=== PATIENT | male | born 1990 | race Caucasian/White ===

== ENCOUNTER 2017-02-03 11:18 | Emergency (ER) | payer MEDICAID ==
[~2017-02-03] VITALS: Ht 167.6 cm; Wt 81.6 kg
--- NOTE | 2017-02-03 11:43 | Emergency Room Report ---
History of Present Illness Time Seen by MD Bar Presenting Problem in Triage Pt arrived:Walked Presenting Problem:PT PRESENTS WITH ABCESS TO LT ARM. PT STATES THAT IT HAS BEEN PRESENT FOR 3 OR 4 DAYS. PT REPORTS HX OF ABCESSES AND MRSA Onset of symptoms date/time:/ or onset unknown for:MEDICAL HX UNKNOWN Treatment Prior to Arrival: [employer] Provided by: Sepsis Risk Assessment: Temp: 97.6 B/P: 121/78 MAP: 92 Pulse: 80 Resp: 16 Recent fever? N Clinical Suspician of Infection? N Mental Status: 1 - Regular (Normal Baseline) Sepsis Risk:Low Sepsis Risk Have you (or family members/close friends) recently traveled outside the [place]? N If Yes, where/when: Have you had exposure to infectious disease within the past month? N TB? Other? Specify: Comment The patient complains of an abscess on his LEFT arm for 3-4 days. He has felt fevers. He has a history of prior skin abscesses requiring incision and drainage. The last was a couple of years ago. He has been told that he has MRSA. ALLERGIES Coded Allergies: Penicillins (Mild, 02/03/17) History Medical History General CAD? No Angina: No [place]: No Hypertension? No Hyperlipidemia? No CHF? No DVT? No PE? No COPD? No Asthma? No Anemia? No GERD? No Gastric ulcers? No GI Bleed? No Hernia? No Thyroid Problems? No Hypothyroidism? No CVA? No Seizures? No Diabetes? No Renal Insuffiency? No End Stage Renal Disease? No UTI? No Stones? No BPH? No GB Disease: No Nephritic Syndrome? No Asplenia? No Hepatitis? No Sickle Cell Disease? No Arthritis? No Migraines? No Cataracts? No Glaucoma? No MRSA? No HIV? No TB? No Anxiety? No Depression? No Cancer? No More? No Immunization Hx DT/Tetanus 1-4 YRS Surgical Hx Previous Surgery?Y CHEST TUBE AT Hernia Repair Social History Smoking Hx Smoker: Current Every Day Smoker Tobacco: Yes Type Cigarettes Packs/day 1 1/2 - 2 Packs Alcohol Alcohol: Yes Review of Systems All Other Systems Reviewed and Negative Constitutional chills, diaphoresis, fever Skin see HPI Physical Exam Vital Signs Vital Signs Date Time Temp Pulse Resp B/P Pulse O2 O2 Flow FiO2 Ox Delivery Rate 02/03 1122 97.6 80 16 121/78 97 General Appearance normal appearance Respiratory Status No: respiratory distress. Cardiovascular regular rate/rhythm, normal peripheral pulses Extremities 5 cm diameter indurated erythematous tender area LEFT upper arm proximal to his antecubital crease, to the lateral side of midline. Neurologic alert, no motor/sensory deficits Medical Decision Making LABS/Meds/Orders Pt receiving controlled substance in ED? Yes Alfonzo was queried for this patient? Yes Comment [id number] 2 rxs. last rx 12 percocet on 12/29/16. Results/Orders Current Medication Orders Sig/Jeffrey Start time Last Medication Dose Route Stop Time Status Admin Trimethoprim/ 1 TABLET ONCE ONE 02/03 1215 DCr Sulfamethoxazole PO 02/03 1216 Lidocaine/Epinephrine 10 ML ONCE ONE 02/03 1145 DC SC 02/03 1146 Lidocaine/Epinephrine 0 .STK-MED ONE 02/03 1144 DC .ROUTE Orders Procedure Date/time Status CULTURE, WOUND 02/03 1142 Active Procedures Incision and Drainage Progress Incision/Drainage Performed by: RACQUEL PRATT Consent: Verbal consent obtained. Risks and benefits: risks, benefits and alternatives were discussed Consent given by: patient Patient identity confirmed: verbally with patient Type: abscess Location: LEFT arm Anesthesia: local infiltration Local anesthetic: lidocaine 1% with epinephrine Patient sedated: no Scalpel size: 11 Incision type: single straight Complexity: simple Drainage: purulent Drainage amount: Large amount Wound treatment: probed for loculationsl. wound left open Packin/4 inch Culture: Sent Patient tolerance: Patient tolerated the procedure well with no immediate complications Departure Departure Disposition DC Home or Self Care(routine) Clinical Impression Primary Impression: Cutaneous abscess of extremity Qualifiers: Site of cutaneous abscess of extremity: upper extremity Laterality: left Qualified Code: L02.414 - Cutaneous abscess of left upper limb Condition STABLE Additional Instructions Additional instructions for ABSCESS: Day one and two: Remove the bandage and shower the area, leaving the packing in place. Gently blot dry. Apply a bandage. Day three: Follow-up with primary care physician, clinic, or Urgent Treatment Center for packing removal and culture results. Return to the emergency department if increasing pain, swelling, redness, redstreaks or fever greater than 101 degrees. Prescriptions Current Visit Scripts SULFAMETHOXAZOLE W/TRIMETHOPRI (Bactrim Ds Tab) 1 TAB PO BID #20 TAB HYDROCODONE/ACETAMINOPHEN ([place] 5-325 Tablet) 1 TAB PO Q6HP PRN pain #8 TAB ED Critical Care Critical Care No
[2017-02-03] MEDS ORDERED: NORCO 325 MG-51 TAB PO (12:17)
[2017-02-03] MEDS ORDERED: BACTRIM DS 8001 TA1 PO (12:17)
[2017-02-03 12:52] VITALS: BP 124/85
== END 2017-02-03 12:53 | disposition home or self-care (01) ==
LOC: ER 11:18
PROC: 0H9CXZZ Drainage of Left Upper Arm Skin, External Approach (ICD-10-PCS; principal; 2017-02-03)
DX: L02.414 Cutaneous abscess of left upper limb (principal); Z88.0 Allergy status to penicillin; F17.210 Nicotine dependence, cigarettes, uncomplicated

== ENCOUNTER 2017-02-18 09:51 | Emergency (ER) | payer MEDICAID ==
[~2017-02-18] VITALS: Ht 167.6 cm; Wt 81.6 kg
[~2017-02-18 09:51] MED LIST: BACTRIM DS 8001 TA1 PO; NORCO 325 MG-51 TAB PO
--- NOTE | 2017-02-18 10:25 | Emergency Room Report ---
History of Present Illness Time Seen by [id number] Presenting Problem in Triage Pt arrived:Walked Presenting Problem:PT C/O BLISTER-LIKE RASH ALL OVER BODY. PT STATES THAT IT APPEARED YESTERDAY AFTER HE HAS BEEN WORKING IN [employer] FOR THE LAST COUPLE DAYS Onset of symptoms date/time:/ or onset unknown for:MEDICAL HX UNKNOWN Treatment Prior to Arrival: [employer] Provided by: Sepsis Risk Assessment: Temp: 97.9 B/P: 132/66 MAP: 88 Pulse: 77 Resp: 20 Recent fever? N Clinical Suspician of Infection? N Mental Status: 1 - Regular (Normal Baseline) Sepsis Risk:Low Sepsis Risk Have you (or family members/close friends) recently traveled outside the [place]? N If Yes, where/when: Have you had exposure to infectious disease within the past month? N TB? Other? Specify: 26 years old white male who has been collecting [employer] for money for the last 3 days, he developed a rash involving the upper and lower extremities. Yesterday he developed blisters. He presented to the ED today complaining of pain in both upper extremities. He denies having fever or chills chest pain that was breathing nausea or vomiting. He looks in no respiratory distress. He is homeless. Source patient, RN notes reviewed Exam Limitations no limitations ALLERGIES Coded Allergies: Penicillins (Mild, 02/03/17) Home Medications Active Scripts SULFAMETHOXAZOLE W/TRIMETHOPRI (Bactrim Ds Tab) 1 TAB PO BID #20 TAB Prov: 02/03/17 HYDROCODONE/ACETAMINOPHEN ([place] 5-325 Tablet) 1 TAB PO Q6HP PRN pain #8 TAB Prov: 02/03/17 History Medical History General CAD? No Angina: No [place]: No Hypertension? No Hyperlipidemia? No CHF? No DVT? No PE? No COPD? No Asthma? No Anemia? No GERD? No Gastric ulcers? No GI Bleed? No Hernia? No Thyroid Problems? No Hypothyroidism? No CVA? No Seizures? No Diabetes? No Renal Insuffiency? No End Stage Renal Disease? No UTI? No Stones? No BPH? No GB Disease: No Nephritic Syndrome? No Asplenia? No Hepatitis? No Sickle Cell Disease? No Arthritis? No Migraines? No Cataracts? No Glaucoma? No MRSA? No HIV? No TB? No Anxiety? No Depression? No Cancer? No More? No Immunization Hx DT/Tetanus 1-4 YRS Surgical Hx Previous Surgery?Y CHEST TUBE AT Hernia Repair Social History Smoking Hx Smoker: Current Every Day Smoker Tobacco: Yes Type Cigarettes Packs/day 1 1/2 - 2 Packs Alcohol Alcohol: Yes Review of Systems All Other Systems Reviewed and Negative Constitutional no symptoms reported Eyes no symptoms reported ENT no symptoms reported. Respiratory no symptoms reported Cardiovascular no symptoms reported Gastrointestinal no symptoms reported Genitourinary no symptoms reported. Musculoskeletal no symptoms reported Skin see HPI, rash (blisters) Psychiatric/Neurological no symptoms reported Physical Exam Vital Signs Vital Signs Date Time Temp Pulse Resp B/P Pulse O2 O2 Flow FiO2 Ox Delivery Rate 02/18 1215 97.9 77 20 132/66 99 02/18 0956 97.9 77 20 132/66 99 - WBC >12,000 or <4,000 or 10% bands? 2 or more SIRS Criteria Met? B/P:132/66 MAP:88 Creatinine >2.0? UA output<0.5ml/kg/hr for 2 hrs? Platelet count >100,000? Lactate >2.0mmol/1? INR >1.2 or PTT > than 60 sec? Evidence of Organ Dysfunction? Provider documented clinical suspician of infection? N Sepsis Criteria Count: 1 Sepsis Risk: Low Sepsis Risk General Appearance normal appearance, WD/WN Eye Exam - bilateral eye normal exam, bilateral eye PERRL, bilateral eye EOMI Ear, Nose, Throat hearing grossly normal, normal ENT inspection Neck normal inspection, non-tender, supple, full range of motion Respiratory Status Yes: trachea midline, chest symmetrical, non tender chest. No: respiratory distress. Lung Sounds bilateral: normal breath sounds, lungs clear. 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 The patient has a rash looks like a firsst degree burn involving his abdomen, lower chestand the RIGHT flank region posteriorly. Lymphatic no adenopathy Medical Decision Making LABS/Meds/Orders Pt receiving controlled substance in ED? No Results/Orders Laboratory Tests 02/18/17 1030: Sodium 137, Potassium 4.3, Chloride 106, Carbon Dioxide 25, BUN 15, Creatinine 0.8, Estimated Creat Clear 159, Estimated GFR (MDRD) 115, Glucose 120 H, Calcium 8.6, Total Bilirubin 0.2, AST 37, ALT 59, Alkaline Phosphatase 63, Total Protein 6.6, Albumin 3.1 L, Globulin 3.5 H, Albumin/Globulin Ratio 0.9 L, WBC 6.8, RBC 5.22, Hgb 15.2, Hct 45.5, MCV 87.3, RDW 12.9, Plt Count 284, MPV 7.9, Gran % 61.6, Gran # 4.2, Lymphocytes % 21.1, Monocytes % 7.4, Eosinophils % 9.3, Basophils % 0.5, Lymphocytes # 1.4, Monocytes # 0.5, Eosinophils # 0.6 H, Basophils # 0.0, PUBS MCHC 33.0, MCH 28.8 02/18/17 1017: Lactic Acid Cancelled Orders Procedure Date/time Status IV SALINE LOCK 02/18 1018 Active CBC WITH AUTO DIFF 02/18 1017 Complete CHEM 12 PROFILE 02/18 1017 Complete Departure Departure Time of Disposition 1145 Disposition DC/XFER from ER to [facility] Hosp Clinical Impression Primary Impression: Allergic reaction Secondary Impressions: Skin bullae on examination Condition STABLE Referrals Antonio Corcoran Additional Instructions The patient remianed afebeile, I obtained normal cbc and electrolytes. I discussed with patient in details thay he has normal vitals and normal labs, he will have an oral medications and follow up with Dr Marie. He stated that he has access to free medications through his medical insurance and he will be staying with a friend. 1- Keep the skin blistrers clean and dry, 2- start on all medications including antibiotics 3- please by a thermometer and observe for fever and return if you developa fever. 4- follow up with Brandon at Dr Marie"s office in am for a recheck. Discharge Counseling Counseled pt/family regarding diagnosis, test results, medications/RX, home care, follow up needs Prescriptions Current Visit Scripts SULFAMETHOXAZOLE W/TRIMETHOPRI (Bactrim Ds Tab) 1 TABLET PO BID #20 TAB Methylprednisolone (Medrol Dose Rex) 4 MG PO UD #1 REX TAKE DIRECTED ON PACKAGING Ranitidine Hcl (Zantac) 150 MG PO BID #20 TAB MUPIROCIN 2% (Bactroban Oint) 0 GM TP DAILY #1 TUBE Ref 1 Diphenhydramine Hcl (Benadryl 25MG CAP) 1-2 CAP PO Q8HP #21 CAP ED Critical Care Critical Care No If Critical Care minutes are documented, the time involved in the performance of seperately reportable procedures was not counted toward critical care time documented. I directly delivered medical care to this critically ill and/or injured patient. Timely evaluation and treatment was necessary to address the significant organ system(s) dysfunction present in this patient. 3- please by a thermometer and observe for fever and return if you developa fever. 4- follow up with Brandon at Dr Marie"s office in am for a recheck. Discharge Counseling Counseled pt/family regarding diagnosis, test results, medications/RX, home care, follow up needs Prescriptions Current Visit Scripts SULFAMETHOXAZOLE W/TRIMETHOPRI (Bactrim Ds Tab) 1 TABLET PO BID #20 TAB Methylprednisolone (Medrol Dose Rex) 4 MG PO UD #1 REX TAKE DIRECTED ON PACKAGING Ranitidine Hcl (Zantac) 150 MG PO BID #20 TAB MUPIROCIN 2% (Bactroban Oint) 0 GM TP DAILY #1 TUBE Ref 1 Diphenhydramine Hcl (Benadryl 25MG CAP) 1-2 CAP PO Q8HP #21 CAP ED Critical Care Critical Care No If Critical Care minutes are documented, the time involved in the performance of seperately reportable procedures was not counted toward critical care time documented. I directly delivered medical care to this critically ill and/or injured patient. Timely evaluation and treatment was necessary to address the significant organ system(s) dysfunction present in this patient.
[2017-02-18 10:47] LABS: LYMPH # 1.4 K/mm3 (0.7-4.5); LYMPH % 21.1 % (10-50)
[2017-02-18 10:58] LABS: HEMOGLOBIN 15.2 g/dL (14.1-18.0)
[2017-02-18] MEDS ORDERED: ZANTAC 150150 MG PO (11:55)
[2017-02-18] MEDS ORDERED: BACTROBAN2% TP (11:55)
[2017-02-18] MEDS ORDERED: BENADRYL 25MG C25 MG PO (11:55)
[2017-02-18] MEDS ORDERED: MEDROL 4MG. DOSE4 MG PO (11:55)
[2017-02-18] MEDS ORDERED: BACTRIM DS 8001 TA1 PO (11:55)
[2017-02-18 12:15] VITALS: BP 132/66
--- OUTSIDE RECORDS SUMMARY | 2017-02-20 15:57 | External Medical Summary Rpt | CCD ---
Author Author , SERGE Organization SERGE Address Unknown Phone [email or web address] Purpose Continuity of Care Document - 08-13-2016 through 2016 Problems Code Diagnosis DOS Provider Status L02.419 CUTANEOUS ABSCESS OF LIMB, UNSPECIFIED S00.83XA CONTUSION OF OTHER PART OF HEAD, INITIAL ENCOUNTER S02.2XXA FRACTURE OF NASAL BONES, INIT ENCNTR FOR CLOSED FRACTURE S06.0X9A CONCUSSION W LOSS OF CONSCIOUSNE SS OF UNSP DURATION, INIT S61.219A LACERATION W/O FB OF UNSP FINGER W/O DAMAGE TO NAIL, INIT Results Labs Lab Lab Date Result Refere Interp Status Commen Order Detail nces retati t Range on TSH SerPl DL<=0.005 mIU/L-aCnc (08-13-2016 07:37) TSH 0.86 0.4-4.2 complet SerPl 017 uIU/mL ed DL<=0.0 07:37 05 mIU/L-a Cnc T4 Free SerPl-mCnc (08-13-2016 07:37) T4 Free 1.2 0.8-1.7 complet 017 ng/dL ed SerPl-m 07:37 Cnc
--- OUTSIDE RECORDS SUMMARY | 2017-02-20 15:57 | External Medical Summary Rpt | CCD ---
Author Author , SERGE Organization SERGE Address Unknown Phone [email or web address] Immunization Name Date Rout CVX Reac Dose Comm Prov Is Faci e tion ent ider Refu lity Give sed n MCV4 07-1 147 999 Hist H220 No H220 UF 2-20 oric 07 al Info rmat ion - Sour ce Unsp ecif ied Td 01-0 9 999 Hist H106 No H106 (med 3-20 oric lt), 02 al Info adso rmat rbed ion - Sour ce Unsp ecif ied Td 07-0 9 999 Hist H106 No H106 (med 1-19 oric lt), 99 al Info adso rmat rbed ion - Sour ce Unsp ecif ied Hep 07-1 8 999 Hist H106 No H106 B, 0-19 oric ped/ 98 al adol Info rmat ion - Sour ce Unsp ecif ied Hep 07-1 8 999 Hist H106 No H106 B, 8-19 oric ped/ 97 al adol Info rmat ion - Sour ce Unsp ecif ied MMR 07-1 3 999 Hist H106 No H106 8- oric 97 al Info rmat ion - Sour ce Unsp ecif ied Hep 06-1 8 999 Hist H106 No H106 B, 8- oric ped/ 97 al adol Info rmat ion - Sour ce Unsp ecif ied
--- OUTSIDE RECORDS SUMMARY | 2017-02-20 15:57 | External Medical Summary Rpt | CCD ---
Demographics Preferred Language Japanese Marital Status Unknown Religion Affiliation Unknown Race Unknown Ethnic Group Unknown Author Author SERGE Address Unknown Phone [email or web address] Purpose Continuity of Care Document - through 2016
--- OUTSIDE RECORDS SUMMARY | 2017-02-20 15:57 | External Medical Summary Rpt | CCD ---
Demographics Preferred Language Tamazight Marital Status Unknown Church Affiliation Unknown Race Unknown Ethnic Group Unknown Author Author SERGE Address Unknown Phone .[employer] Purpose Continuity of Care Document - through 2016
--- OUTSIDE RECORDS SUMMARY | 2017-02-20 15:57 | External Medical Summary Rpt | CCD ---
Author Author , SERGE Organization SERGE Address Unknown Phone [email or web address] Purpose Continuity of Care Document - 08-13-2016 [...]
--- OUTSIDE RECORDS SUMMARY | 2017-02-20 15:57 | External Medical Summary Rpt | CCD ---
Author Author , SERGE Organization SERGE Address Unknown Phone [email or web address] Immunization Name Date Rout CVX Reac Dose [...]
--- OUTSIDE RECORDS SUMMARY | 2017-02-20 15:58 | External Medical Summary Rpt ---
Author Author SERGE Lipscomb, SERGE Lipscomb Organization [employer] Address Unknown Phone Unavailable
== END 2017-02-18 12:19 | disposition short-term general hospital (02) ==
LOC: ER 09:51
PROVIDERS: Emergency Medicine
DX: T78.49XA Other allergy, initial encounter (principal); F17.210 Nicotine dependence, cigarettes, uncomplicated; Z88.0 Allergy status to penicillin

== ENCOUNTER 2017-04-06 13:54 | Emergency (ER) | payer MEDICAID ==
[~2017-04-06] VITALS: Ht 167.6 cm; Wt 79.4 kg
[~2017-04-06 13:54] MED LIST changes: +BACTROBAN2% TP; +BENADRYL 25MG C25 MG PO; +MEDROL 4MG. DOSE4 MG PO; +ZANTAC 150150 MG PO
--- OUTSIDE RECORDS SUMMARY | 2017-04-06 14:12 | External Medical Summary Rpt ---
Author Author [employer]GE Production, [employer] Organization [employer] Address Unknown Phone Unavailable Results CBC W Auto Differential panel in Blood Observa Value Referen Units Interpr Notes Date tion ce etation Range Basophils 0 - 0.2 K/MM3 Normal No Feb 18 inform2016 [#/volume on in 10:30 AM ] in source Blood by data Automated count Basophils 0.1 - 2.0 % Normal No Feb 18 inform2016 leukocyte on in 10:30 AM s in source Blood by data Automated count Eosinophi 0.0 - 0.4 K/mm3 High No Feb 18 ls inform2016 [#/volume on in 10:30 AM ] in source Blood by data Automated count Eosinophi 0.1 - % Normal No Feb 18 ls/100 12.0 inform2016 leukocyte on in 10:30 AM s in source Blood by data Automated count Granulocy 1.3 - 8.0 K/mm3 Normal No Feb 18 maxim 2016 [#/volume on in 10:30 AM ] in source Blood by data Automated count Granulocy 37.0 - % Normal No Feb 18 maxim/100 80.0 inform2016 leukocyte on in 10:30 AM s in source Blood by data Automated count Hematocri 42.0 - % Normal No Feb 18 t [Volume 52.0 2016 on in 10:30 AM Fraction] source of Blood data Hemoglobi 14.1 - g/dL No No Feb 18 n 18.0 informati informati 2016 [Mass/vol on in on in 10:30 AM ume] in source source Blood data data Lymphocyt 0.7 - 4.5 K/mm3 Normal No Feb 18 es inform2016 [#/volume on in 10:30 AM ] in source Unspecifi data ed specimen by Automated count Lymphocyt 10 - 50 % Normal No Feb 18 es inform2016 [#/volume on in 10:30 AM ] in source Unspecifi data ed specimen by Automated count Erythrocy 27 - 31.2 pg Normal No Oct 12 te mean informati 2017 corpuscul on in 10:30 AM ar source hemoglobi data n [Entitic mass] Erythrocy 31.8 - g/dl Normal No Feb 18 te mean 35.4 2016 corpuscul on in 10:30 AM ar source hemoglobi data n concentra tion [Mass/vol ume] by Automated count Erythrocy 82.2 - fl Normal No Feb 18 te mean 97.8 2016 corpuscul on in 10:30 AM ar volume source [Entitic data volume] by Automated count Monocytes 0.1 - 1.0 K/mm3 Normal No Feb 18 inform2016 [#/volume on in 10:30 AM ] in source Blood by data Automated count Monocytes 1.7 - 9.3 % Normal No Feb 18 /100 2016 leukocyte on in 10:30 AM s in source Blood by data Automated count Platelet 7.4 - fl Normal No Feb 18 mean 10.4 2016 volume on in 10:30 AM [Entitic source volume] data in Blood by Automated count Platelets 142 - 424 K/mm3 Normal No Feb 182016 [#/volume on in 10:30 AM ] in source Blood data Erythrocy 4.6 - 6.2 M/mm3 Normal No Feb 18 maxim 2016 [#/volume on in 10:30 AM ] in source Amniotic data fluid Erythrocy 11.5 - % Normal No Feb 18 te 17.5 2016 distribut on in 10:30 AM ion width source [Entitic data volume] by Automated count Leukocyte 4.8 - K/MM3 Normal No Feb 18 s 10.8 2016 [#/volume on in 10:30 AM ] in source Blood data Comprehensive metabolic 2000 panel in Serum or Plasma Observa Value Referen Units Interpr Notes Date tion ce etation Range Albumin/G 1.1 - 1.8 No Low No Feb 18 lobulin informati 2016 [Mass on in on in 10:30 AM ratio] in source source Serum or data data Plasma Albumin 3.4 - 5.0 gm/dL Low No Feb 18 [Mass/vol inform2016 ume] in on in 10:30 AM Serum or source Plasma data Alkaline 46 - 116 U/L Normal No Feb 18 phosphata 2016 se on in 10:30 AM [Enzymati source c data activity/ volume] in Serum or Plasma Bilirubin 0.2 - 1.0 mg/dL Normal No Oct 12 .total informati 2017 [Mass/vol on in 10:30 AM ume] in source Serum or data Plasma Urea 7 - 18 mg/dL Normal No Oct 12 nitrogen informati 2017 [Mass/vol on in 10:30 AM ume] in source Serum or data Plasma Calcium 8.5 - mg/dL Normal No Feb 12 [Mass/vol 10.1 informati 2017 ume] in on in 10:30 AM Serum or source Plasma data Chloride 98 - 107 mmoL/L Normal No Oct 12 [Moles/vo informati 2017 lume] in on in 10:30 AM Serum or source Plasma data Carbon 21.0 - mmoL/L Normal No Feb 12 dioxide, 32.0 informati 2017 total on in 10:30 AM [Moles/vo source lume] in data Serum or Plasma Creatinin 0.70 - mg/dL Normal No Oct 12 e 1.30 informati 2017 [Mass/vol on in 10:30 AM ume] in source Serum or data Plasma Creatinin 50 - 200 ML/MIN Normal No Feb 12 e renal informati 2017 clearance on in 10:30 AM source predicted data by Cockcroft -Gault formula Estimated >60 ML/MIN No REFERENCE Oct 12 informati RANGE: 2017 glomerula on in >60 10:30 AM r source ML/MIN/1. filtratio data 73 SQUARE n rate METERSIf (GF this patient is -A merican, then multiply theresult by 1.210. Globulin 1.3 - 3.2 gm/dL High No Feb 12 [Mass/vol informati 2017 ume] in on in 10:30 AM Serum source data Glucose 74 - 106 mg/dL High No Oct 12 [Mass/vol informati 2017 ume] in on in 10:30 AM Serum or source Plasma data Potassium 3.5 - 5.1 mmoL/L Normal PLEASE Feb 12 NOTE 2+ 2017 [Moles/vo HEMOLYSIS 10:30 AM lume] in MAY Serum or SLIGHTLY Plasma ELEVATE K RESULST Sodium 136 - 145 mmoL/L Normal No Oct 12 [Moles/vo informati 2017 lume] in on in 10:30 AM Serum or source Plasma data Aspartate 15 - 37 U/L Normal PLEASE Feb 12 NOTE 2+ 2017 aminotran HEMOLYSIS 10:30 AM sferase MAY [Enzymati SLIGHTLY c ELEVATE activity/ AST volume] RESULT in Serum or Plasma Alanine 12 - 78 U/L Normal No Feb 18 aminotran informati 2017 sferase on in 10:30 AM [Enzymati source c data activity/ volume] in Serum or Plasma Protein 6.4 - 8.2 gm/dL Normal No Feb 18 [Mass/vol informati 2017 ume] in on in 10:30 AM Serum or source Plasma data
--- OUTSIDE RECORDS SUMMARY | 2017-04-06 14:12 | External Medical Summary Rpt | CCD ---
Author Author , SERGE Organization SERGE Address Unknown Phone [email or web address] Immunization Name Date Rout CVX Reac Dose [...]
--- OUTSIDE RECORDS SUMMARY | 2017-04-06 14:12 | External Medical Summary Rpt | CCD ---
Author Author , SERGE Organization SERGE Address Unknown Phone [email or web address] Purpose Continuity of Care Document - 08-13-2016 through 2016 Problems Code Diagnosis DOS Provider Status L02.419 CUTANEOUS ABSCESS OF LIMB, UNSPECIFIED L03.119 CELLULITIS OF UNSPECIFIED PART OF LIMB L13.9 BULLOUS DISORDER, UNSPECIFIED S00.83XA CONTUSION OF OTHER PART OF HEAD, INITIAL ENCOUNTER S02.2XXA FRACTURE OF NASAL BONES, INIT ENCNTR FOR CLOSED FRACTURE S06.0X9A CONCUSSION W LOSS OF CONSCIOUSNE SS OF UNSP DURATION, INIT S61.219A LACERATION W/O FB OF UNSP FINGER W/O DAMAGE TO NAIL, INIT T78.40XA ALLERGY, UNSPECIFIED , INITIAL ENCOUNTER Results Labs Lab Lab Date Result Refere Interp Status Commen Order Detail nces retati t Range on CBC w auto diff (02-18-2017 10:30) Blood = 6.8 4.8-10. complet leukocy 017 K/MM3 8 ed maxim 10:30 count (number /volume ) Automat = 12.9 11.5-17 complet ed 017 % .5 ed erythro 10:30 cyte distrib ution width Red = 5.22 4.6-6.2 complet blood 017 M/mm3 ed cell 10:30 count Blood = 284 142-424 complet platele 017 K/mm3 ed t count 10:30 Automat = 7.9 7.4-10. complet ed 017 fl 4 ed blood 10:30 platele t mean volume wm [place] % = 7.4 % 1.7-9.3 complet 017 ed 10:30 Absolut = 0.5 0.1-1.0 complet e 017 K/mm3 ed monocyt 10:30 e count Automat = 87.3 82.2-97 complet ed 017 fl .8 ed erythro 10:30 cyte mean corpusc ular v Automat = 33.0 31.8-35 complet ed 017 g/dl .4 ed erythro 10:30 cyte mean corpusc ular h Mean = 28.8 27-31.2 complet corpusc 017 pg ed ular 10:30 hemoglo bin ([facility]) determ Lymphoc = 21.1 10-50 complet yte 017 % ed count, 10:30 blood, automat ed Absolut = 1.4 0.7-4.5 complet e 017 K/mm3 ed lymphoc 10:30 yte count Blood = 15.2 14.1-18 complet hemoglo 017 g/dL .0 ed bin 10:30 measure ment (mass/v olum Blood = 45.5 42.0-52 complet hematoc 017 % .0 ed rit 10:30 (volume fractio n) Granulo = 61.6 37.0-80 complet cyte 017 % .0 ed percent 10:30 age Blood = 4.2 1.3-8.0 complet granulo 017 K/mm3 ed cytes 10:30 automat ed count (numb Automat = 9.3 % 0.1-12. complet ed 017 0 ed blood 10:30 eosinop hils/10 0 leukocy t Automat = 0.6 0.0-0.4 complet ed 017 K/mm3 ed blood 10:30 eosinop hil count Baso % = 0.5 % 0.1-2.0 complet 017 ed 10:30 Automat = 0.0 0-0.2 complet ed 017 K/MM3 ed blood 10:30 basophi l count (count/ vo Comprehensive metabolic panel (02-18-2017 10:30) Serum = 4.3 3.5-5.1 complet potassi 017 mmoL/L ed um 10:30 measure ment Serum = 120 74-106 complet or 017 mg/dL ed plasma 10:30 glucose measure ment (mas Serum = 3.5 1.3-3.2 complet globuli 017 gm/dL ed n 10:30 measure ment (mass/v olume) Estimat = 115 >60 complet ed 017 ML/MIN ed glomeru 10:30 lar filtrat ion rate (GF Estimat = 159 50-200 complet ion of 017 ML/MIN ed creatin 10:30 ine renal clearan ce Serum = 0.8 0.70-1. complet or 017 mg/dL 30 ed plasma 10:30 creatin ine measure ment ( Carbon = 25 21.0-32 complet dioxide 017 mmoL/L .0 ed 10:30 measure ment Serum = 106 98-107 complet or 017 mmoL/L ed plasma 10:30 chlorid e measure ment (mo Serum = 8.6 8.5-10. complet or 017 mg/dL 1 ed plasma 10:30 calcium measure ment (mas Serum = 15 7-18 complet or 017 mg/dL ed plasma 10:30 urea nitroge n measure men Serum = 0.2 0.2-1.0 complet or 017 mg/dL ed plasma 10:30 total bilirub in measure m Serum = 63 46-116 complet or 017 U/L ed plasma 10:30 alkalin e phospha tase wm Serum = 3.1 3.4-5.0 complet or 017 gm/dL ed plasma 10:30 albumin measure ment (mas Serum = 0.9 1.1-1.8 complet or 017 ed plasma 10:30 albumin /globul in mass ra Protein = 6.6 6.4-8.2 complet total 017 gm/dL ed ser/rosales 10:30 s ALT = 59 12-78 complet (SGPT) 017 U/L ed ser/rosales 10:30 s Serum = 37 15-37 complet or 017 U/L ed plasma 10:30 asparta te aminotr ansfera Serum = 137 136-145 complet sodium 017 mmoL/L ed measure 10:30 ment TSH SerPl DL<=0.005 mIU/L-aCnc (08-13-2016 07:37) TSH 0.86 0.4-4.2 complet SerPl 017 uIU/mL ed DL<=0.0 07:37 05 mIU/L-a [facility] T4 Free SerPl-[facility] (08-13-2016 07:37) T4 Free 1.2 0.8-1.7 complet 017 ng/dL ed SerPl-m 07:37 [facility]
--- OUTSIDE RECORDS SUMMARY | 2017-04-06 14:12 | External Medical Summary Rpt | CCD ---
Author Author Con[employer]ent Organization [employer] Address Unknown Phone Unavailable Purpose Continuity of Care Document - through 2016
--- OUTSIDE RECORDS SUMMARY | 2017-04-06 14:12 | External Medical Summary Rpt | CCD ---
Author Author , SERGE Organization SERGE Address Unknown Phone [email or web address] Purpose Continuity of Care Document - 08-13-2016 [...] blood 10:30 platele t mean volume wm [place] % = 7.4 % 1.7-9.3 complet 017 [...] 017 uIU/mL ed DL<=0.0 07:37 05 mIU/L-a [facility] T4 Free SerPl-[facility] (08-13-2016 07:37) T4 Free 1.2 0.8-1.7 complet 017 ng/dL ed SerPl-m 07:37 [facility]
--- OUTSIDE RECORDS SUMMARY | 2017-04-06 14:12 | External Medical Summary Rpt | CCD ---
Author Author , SERGE Organization SERGE Address Unknown Phone [email or web address] Immunization Name Date Rout CVX Reac Dose [...]
--- NOTE | 2017-04-06 14:17 | Emergency Room Report ---
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 N Clinical Suspician of Infection? N Mental Status: 1 - Regular (Normal Baseline) Sepsis Risk:Low Sepsis Risk Have you (or family members/close friends) recently traveled outside the [place]? N If Yes, where/when: Have you had exposure to infectious disease within the past month? N TB? Other? Specify: Comment The patient fell off a little worse. He complains of LEFT clavicle pain. Initially denied any other complaints. Indicates to me that his neck also hurts now. He has a headache. He did not lose consciousness but says that he was dazed. No abdominal pain or chest pain. No numbness or weakness. No injury to the lower extremities or hips. He ambulated into the emergency department. ALLERGIES Coded Allergies: Penicillins (Mild, 02/03/17) Home Medications Active Scripts SULFAMETHOXAZOLE W/TRIMETHOPRI (Bactrim Ds Tab) 1 TAB PO BID #20 TAB Prov: 02/03/17 HYDROCODONE/ACETAMINOPHEN ([place] 5-325 Tablet) 1 TAB PO Q6HP PRN pain #8 TAB Prov: 02/03/17 SULFAMETHOXAZOLE W/TRIMETHOPRI (Bactrim Ds Tab) 1 TABLET PO BID #20 TAB Prov: 02/18/17 Methylprednisolone (Medrol Dose Rex) 4 MG PO UD #1 REX Prov: 02/18/17 Ranitidine Hcl (Zantac) 150 MG PO BID #20 TAB Prov: 02/18/17 MUPIROCIN 2% (Bactroban Oint) 0 GM TP DAILY #1 TUBE Ref 1 Prov: 02/18/17 Diphenhydramine Hcl (Benadryl 25MG CAP) 1-2 CAP PO Q8HP #21 CAP Prov: 02/18/17 History Medical History General CAD? No Angina: No SD: No Hypertension? No Hyperlipidemia? No CHF? No DVT? No PE? No COPD? No Asthma? No Anemia? No GERD? No Gastric ulcers? No GI Bleed? No Hernia? No Thyroid Problems? No Hypothyroidism? No CVA? No Seizures? No Diabetes? No Renal Insuffiency? No End Stage Renal Disease? No UTI? No Stones? No BPH? No GB Disease: No Nephritic Syndrome? No Asplenia? No Hepatitis? No Sickle Cell Disease? No Arthritis? No Migraines? No Cataracts? No Glaucoma? No MRSA? No HIV? No TB? No Anxiety? No Depression? No Cancer? No More? No Immunization Hx DT/Tetanus 1-4 YRS Surgical Hx Previous Surgery?Y CHEST TUBE AT Hernia Repair Social History Smoking Hx Smoker: Current Every Day Smoker Tobacco: Yes Type Cigarettes Packs/day 1 1/2 - 2 Packs Alcohol Alcohol: Yes Review of Systems All Other Systems Reviewed and Negative Respiratory denies shortness of breath Cardiovascular denies chest pain, denies syncope Gastrointestinal denies abdominal pain, denies vomiting Musculoskeletal see HPI Psychiatric/Neurological headache, denies numbness, denies weakness Physical Exam Vital Signs Vital Signs Date Time Temp Pulse Resp B/P Pulse O2 O2 Flow FiO2 Ox Delivery Rate 04/06 1620 82 16 128/78 99 04/06 1405 18 04/06 1357 98.1 78 18 134/80 99 General Appearance mild distress (LEFT clavicle pain), sitting in chair Eye Exam - bilateral eye normal exam, bilateral eye PERRL, bilateral eye EOMI Ear, Nose, Throat hearing grossly normal, normal ENT inspection Neck normal inspection, tender midline (lower posterior) Respiratory Status Yes: trachea midline, chest symmetrical, non tender chest. No: respiratory distress. Lung Sounds bilateral: normal breath sounds, lungs clear. Cardiovascular normal exam, regular rate/rhythm, no peripheral edema, no gallop, no JVD, no murmur, no rub, normal peripheral pulses Peripheral Pulses Pulses normal Yes Gastrointestinal normal bowel sounds, normal exam, non tender, soft, no organomegaly Back normal inspection, no CVA tenderness, no vertebral tenderness Extremities edema and deformity over her mid LEFT clavicle with tenderness. Skin intact. Distal neurovascular status intact. 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 Yes Comment [id number] 2 rxs. last rx 8 norco on 02/03/17. Results/Orders Current Medication Orders Sig/Jeffrey Start time Last Medication Dose Route Stop Time Status Admin Oxycodone/ 1 EACH ONCE ONE 04/06 1415 DC 04/06 Acetaminophen PO 04/06 1416 1405 Oxycodone/ 0 .STK-MED ONE 04/06 1402 DC Acetaminophen PO Orders Procedure Date/time Status DIET-NOTHING BY MOUTH 04/06 D Active STABILIZE JOINT 04/[address] HEAD REQ 04/[address] SCAN REQ 04/06 142 Complete CHEST(2 VIEWS-NOT PORTABLE) 04/06 1358 Active XRAY/CT/US XRAY/CT/US XRAY chest, clavicle, shoulder Comment X-rays interpreted by Demetrius Hernández M.D.: Clavicle: Comminuted displaced fracture Shoulder: Comminuted displaced clavicle fracture, no other fracture or dislocation seen Chest: Comminuted clavicle fracture, no pneumothorax or rib fracture seen CT head, C-spine Comment CT scan interpreted by radiologist: Head: Negative cervical spine: Negative Progress - Dr. Hughes's office contacted. They request a sling, no clavicle strap at this time. 3:29 PM: Patient states that 2 minutes ago his LEFT upper extremity got tingly and now he cannot feel his LEFT upper extremity from his shoulder down to the tips of his fingers. It is circumferential, nondermatomal. Radial pulse 2+. Normal warmth and capillary refill. His motor function all appears to be intact. 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 4:06 PM:patient states that numbness is coming and going. Discussed with Dr. Taveras. He feels that since the patient has nondermatomal numbness of his entire upper extremity and no motor findings that symptoms are more subjective rather than from an objective nerve compression. He says he will see the patient in his clinic in follow-up, put him in a sling now. If numbness persists he will send to [facility] for evaluation. Departure Departure Disposition DC Home or Self Care(routine) Clinical Impression Primary Impression: Closed left clavicular fracture Qualifiers: Encounter type: initial encounter Clavicle location: shaft Fracture alignment: displaced Qualified Code: S42.022A - Displaced fracture of shaft of left clavicle, initial encounter for closed fracture Secondary Impressions: Fall from horse Qualifiers: Encounter type: initial encounter Qualified Code: V80.010A - Animal -rider injured by fall from or being thrown from horse in noncollision accident, initial encounter Scalp contusion Qualifiers: Encounter type: initial encounter Qualified Code: S00.03XA - Contusion of scalp, initial encounter Strain, cervical Qualifiers: Encounter type: initial encounter Qualified Code: S16.1XXA - Strain of muscle, fascia and tendon at neck level, initial encounter Condition STABLE Referrals MOHAMUD DIAZ, [facility] Orthopedics: See within one week, call for appointment Patient Instructions Closed Head Injury, DI for Clavicle Fracture-Adult, DI for Neck Sprain, How to Use a Sling Additional Instructions Sling on LEFT arm until seen by orthopedics. Ice 20 minutes 4-5 times a day for swelling Return to the emergency department if increasing numbness of your LEFT arm or if unable to move your LEFT fingers, hand, or arm. Additional instructions for general trauma: Return to the emergency department immediately if severe chest pain, shortness of breath, abdominal pain, vomiting, severe neck pain, and this or weakness of arms or legs. Additional instructions for CONTROLLED SUBSTANCES: You have been prescribed a medication that is a controlled substance. Controlled substances include pain medications known as opiates and sedative nerve medications known as benzodiazepines. Some common opiates include: Codeine (such as Tylenol #3) Hydrocodone (Vicodin, Lortab, Lorcet, [place]) Oxycodone (Percocet, Percodan, Oxycodone, Oxy IR) Some common benzodiazepines include: Diazepam (Valium) Lorazepam (Ativan) Alprazolam (Xanax) Clonazepam (Klonopin) Oxazepam (Serax) All of these controlled substances are highly addictive and frequently abused. Misuse can and frequently does lead to addiction as well as overdose and . Medication should be stored in a locked cabinet or other secure storage unit. Do not store the medication in a motor vehicle. Short term supplies, 3 days or less, are prescribed because of the highly addictive nature of the medication. Any of the controlled substance medication NOT taken should be disposed of properly and NOT SAVED. The recommended method of disposing of unused medications is: Place the medicines in a sealable plastic bag. If the medicine is a solid, crush it or add water to dissolve it. Add something undesirable (cat litter, coffee grounds, etc.) Dispose of sealed bag in household trash Do not flush or pour unused medicines down a sink or drain. Controlled substances should not be shared, given away or sold. Because of the addictive nature and frequent abuse, these medications are sometimes stolen. These medications should be kept in a safe place where they cannot be stolen. Do not keep them in your car or purse. Lost or stolen prescriptions for controlled substances WILL NOT BE REFILLED in this emergency department, regardless of whether a police report was filed. Prescriptions Current Visit Scripts OXYCODONE HCL/ACETAMINOPHEN (Percocet 5-325 MG Tablet) 1 TAB PO Q6HP PRN pain #10 TAB Ibuprofen (Ibuprofen 800MG) 800 MG PO Q8HP PRN pain #20 TAB ED Critical Care Critical Care No at [id number]
--- NOTE | 2017-04-06 15:05 | RADIOLOGY REPORT PS360 ---
CT HEAD W/O CONTRAST HISTORY: Headache following head injury FELL OFF HORSE ORDERING PHYSICIAN: Demetrius Hernández MD PATIENT AGE: 27 years COMPARISON: 05/15/2014 TECHNIQUE: Axial images obtained without contrast. Brain and bone windows reviewed. FINDINGS: No midline shift, mass effect, intracranial hemorrhage, hydrocephalus, or extra-axial fluid collection is evident. The calvarium has an unremarkable appearance. No mastoid effusion. The visualized paranasal sinuses are unremarkable. There is an old nasal bone fracture of the left aspect of the nasal bone. IMPRESSION: No acute intracranial findings
--- NOTE | 2017-04-06 15:10 | RADIOLOGY REPORT PS360 ---
CT CERVICAL SPINE W/O CONT INDICATION: Neck injury with pain FELL OFF HORSE ORDERING PHYSICIAN: Demetrius Hernández MD PATIENT AGE: 27 years COMPARISON: None TECHNIQUE: Axial images are obtained without contrast. Sagittal and coronal reformatted images are reviewed as well. FINDINGS: There is normal alignment. No cervical spine fracture or dislocation is evident. No prevertebral soft tissue swelling. The disc spaces are well-preserved. Scattered small lymph nodes are present throughout the neck on both sides. Lung apices are clear. The comminuted displaced midshaft left clavicular fracture. Posterior fracture fragments are displaced posteriorly x 8 mm and there is moderate in the inferior angulation of the distal fracture fragment. IMPRESSION: 1. No acute cervical fracture. 2. Comminuted mildly displaced left mid shaft clavicular fracture with inferior angulation of the distal fracture fragment
--- NOTE | 2017-04-06 15:13 | RADIOLOGY REPORT PS360 ---
ERA-[id number]-3 VIEWS HISTORY: Left shoulder pain following injury FELL OFF HORSE ORDERING PHYSICIAN: Demetrius Hernández MD PATIENT AGE: 27 years COMPARISON: None FINDINGS: There is a comminuted mid shaft left clavicular fracture with nearly 2 cm inferior displacement of the distal fracture fragment with 0% bony apposition of the main fracture fragments. AC joint is intact. The glenohumeral joint has an unremarkable appearance. IMPRESSION: Comminuted displaced mid shaft left clavicle fracture
[2017-04-06] MEDS ORDERED: PERCOCET1 TAB PO (15:24)
[2017-04-06] MEDS ORDERED: IBUPROFEN800 MG PO (15:24)
[2017-04-06 16:20] VITALS: BP 128/78
--- NOTE | 2017-04-07 16:59 | RADIOLOGY REPORT PS360 ---
CHEST(2 VIEWS-NOT PORTABLE) HISTORY: Chest pain following injury FELL OFF HORSE ORDERING PHYSICIAN: Demetrius Hernández MD PATIENT AGE: 27 years COMPARISON: None available FINDINGS: The cardiomediastinal silhouette and pulmonary vascularity are within normal limits. The lungs are clear without infiltrates, suspicious nodules, or pleural effusions. Comminuted left mid shaft clavicular fracture is present. There is 7 mm inferior displacement of the distal fracture fragment with good alignment. No evidence of pneumothorax. IMPRESSION: Comminuted mildly displaced left mid shaft clavicular fracture
== END 2017-04-06 16:21 | disposition home or self-care (01) ==
LOC: ER 13:54
DX: S42.022A Displaced fracture of shaft of left clavicle, initial encounter for closed fracture (principal); S16.1XXA Strain of muscle, fascia and tendon at neck level, initial encounter; S00.03XA Contusion of scalp, initial encounter; V80.010A Animal-rider injured by fall from or being thrown from horse in noncollision accident, initial encounter